=== PATIENT | male | born 1980 | race Two or more races ===

== ENCOUNTER 2021-09-07 11:42 | Emergency (ER) | payer MEDICAID ==
[~2021-09-07] VITALS: Ht 185.4 cm; Wt 79.4 kg
[2021-09-07 11:50] VITALS: BP 119/81
--- NOTE | 2021-09-07 11:53 | NUR ---
BIBS FOR C/O L EARACHE, FEVER, CHILLS, COUGH AND CONGESTION. RATES PAIN 5/10. OXYGEN SATURATION IN ROOM AIR IS AT 98%. WILL CONTINUE TO MONITOR THE PATIENT.
[2021-09-07] MEDS ORDERED: ONDANSETRON HCL/PF 4 MG/2 ML VIAL ONE ×2 (12:55→20:02)
[2021-09-07] MEDS ORDERED: ACETAMINOPHEN 325 MG TABLET ONE (12:55)
[2021-09-07] MEDS ORDERED: LORAZEPAM INJ 2 MG/ML VIAL ONE (12:56)
[2021-09-07] MEDS ORDERED: LORAZEPAM INJ 2 MG/ML VIAL IM ONE (13:00)
[2021-09-07] MEDS ORDERED: ACETAMINOPHEN 325 MG TABLET PO ONE (13:00)
[2021-09-07] MEDS ORDERED: ONDANSETRON HCL/PF 4 MG/2 ML VIAL IM ONE (13:00)
--- NOTE | 2021-09-07 13:12 | NUR ---
ORAL TEMP RECHECK, 98.1
[2021-09-07] MEDS ORDERED: AMOX-430 PO (13:44)
[2021-09-07] MEDS ORDERED: ONDA4TAB5 PO (13:44)
--- NOTE | 2021-09-07 13:45 | NUR ---
The patient is alert and oriented x4. Respiration regular and unlabored. Denies SOB. Will continue to monitor the patient.
--- NOTE | 2021-09-07 13:56 | NUR ---
Patient discharged to home in stable condition. Written and verbal after care instructions given. Patient verbalizes understanding of instruction.
[2021-09-07] MEDS ORDERED: DOXY100T2 PO (17:22)
[2021-09-13] MEDS ORDERED: CEFT2FRO2 IV (14:26)
[2021-09-13] MEDS ORDERED: TRAZ-252 PO (14:26)
[2021-09-13] MEDS ORDERED: NORT25CA PO (14:52)
[2021-09-13] MEDS ORDERED: LORA-259 PO (14:52)
== END 2021-09-07 13:56 | disposition home or self-care (01) ==
LOC: ER 11:44
DX: J32.9 Chronic sinusitis, unspecified (principal)
CPT/HCPCS: 70450; 96372 ×2; 99284; J2060; J2405 ×2; J7030

== ENCOUNTER 2021-09-07 14:48 | Inpatient (IN) | payer MEDICAID ==
[~2021-09-07] VITALS: Ht 185.4 cm; Wt 81.2 kg
[~2021-09-07 14:48] MED LIST: AMOX-430 PO; ONDA4TAB5 PO
--- NOTE | 2021-09-07 15:40 | NUR ---
[id number] C/O LEFT EAR PAIN. SEEN EARLIER FOR SAME REASON. RATES PAIN 09/01. ATTACHED TO THE MONITOR.
--- NOTE | 2021-09-07 15:50 | NUR ---
THE PATIENT IS ALERT AND ORIENTED X3. IN ROOM AIR AND DENIES SOB. RESPIRATION REGULAR AND UNLABORED. THE PATIENT REMAINS ATTACHED TO THE MONITOR.
[2021-09-07] MEDS ORDERED: ONDANSETRON HCL/PF 4 MG/2 ML VIAL ONE (15:52)
[2021-09-07] MEDS ORDERED: MORPHINE SULFATE INJ 4 MG/ML DISP.SYRIN ONE (15:52)
[2021-09-07 15:58] LABS: BASOPHILS % (AUTO) 0.1 % (0.0-2.0); EOSINOPHILS % (AUTO) 3.1 % (0.0-6.0); HEMATOCRIT 46 % (39-51); HEMOGLOBIN 15.3 g/dL (13.5-17.5); LYMPHOCYTES # (AUTO) 0.5 K/uL (0.8-4.8); LYMPHOCYTES % (AUTO) 4.6 % (20.0-44.0); MEAN CORPUSCULAR HGB CONC 34 g/dl (31.0-36.0); MEAN CORPUSCULAR VOLUME 90 fL (80-96); MONOCYTES # (AUTO) 0.3 K/uL (0.1-1.30); MONOCYTES % (AUTO) 2.9 % (2.0-12.0); NEUTROPHILS # (AUTO) 9.5 K/uL (1.8-8.9); NEUTROPHILS % (AUTO) 89.3 % (43.0-81.0); PLATELET COUNT (AUTO) 165 K/uL (150-450); WHITE BLOOD COUNT (AUTO) 10.7 K/uL (4.3-11.0)
--- NOTE | 2021-09-07 15:59 | NUR ---
BLOOD SPECIMEN COLLECTED AND SENT TO THE LAB
[2021-09-07] MEDS ORDERED: ONDANSETRON HCL/PF - ER 4 MG/2 ML VIAL IV ONE (16:00)
[2021-09-07] MEDS ORDERED: MORPHINE SULFATE INJ 2 MG/ML DISP.SYRIN IV ONE (16:00)
[2021-09-07] MEDS ORDERED: IV NS 0.9% 1,000 ML BAG IV ONE ×2 (16:00→18:00)
[2021-09-07] MEDS ORDERED: IV NS 0.9% 250 ML IV ONE (16:09)
[2021-09-07] MEDS ORDERED: IOHEXOL-350 100 ML VIAL IV ONE (16:09)
[2021-09-07] MEDS ORDERED: CT SWABBABLE VALVE TRANS SET 1 EA INFUS.SET MC ONE (16:10)
[2021-09-07 16:26] LABS: ALANINE AMINOTRANSFERASE 35 U/L (12-78); ALBUMIN 3.9 g/dL (3.4-5.0); ALKALINE PHOSPHATASE 86 U/L (46-116); ASPARTATE AMINOTRANSFERASE 25 U/L (15-37); BILIRUBIN,DIRECT 0.2 mg/dL (0.0-0.2); BILIRUBIN,TOTAL 0.8 mg/dL (0.2-1.0); CALCIUM, SERUM 9.3 mg/dL (8.5-10.1); CARBON DIOXIDE 20 mmol/L (21-32); CHLORIDE 100 mmol/L (98-107); CREATININE 1.5 mg/dL (0.6-1.3); GLUCOSE 140 mg/dL (74-106); POTASSIUM 3.4 mmol/L (3.5-5.1); SODIUM SERUM 137 mmol/L (136-145); TOTAL PROTEIN, SERUM 8.9 g/dL (6.4-8.2); UREA NITROGEN, BLOOD 17 mg/dL (7-18)
--- NOTE | 2021-09-07 16:42 | NUR ---
covid swab done and sent to the lab
--- NOTE | 2021-09-07 17:08 | NUR ---
NURSE NED TOOK OVER THE CARE. REPORT FOR ARASELI GIVEN
[2021-09-07] MEDS ORDERED: DOXY100T2 PO (17:22)
[2021-09-07] MEDS ORDERED: VANCOMYCIN 1 GM in IV D5W 250 ML IV ONE (17:30)
[2021-09-07] MEDS ORDERED: DEXAMETHASONE SOD PHOSPHATE 10 MG/ML VIAL IV ONE (17:30)
[2021-09-07] MEDS ORDERED: CEFTRIAXONE 2 G in IV D5W 50 ML IV ONE (17:30)
--- NOTE | 2021-09-07 17:38 | NUR ---
dr chapa at bedside for lumbar puncture.
[2021-09-07] MEDS ORDERED: DEXAMETHASONE SOD PHOSPHATE 10 MG/ML VIAL ONE (17:42)
[2021-09-07] MEDS ORDERED: ACETAMINOPHEN ES 500 MG TABLET PO ONE (18:00)
[2021-09-07 18:39] LABS: ALCOHOL, BLOOD < 10 mg/dL (0-0); CREATINE KINASE, TOTAL 184 U/L (39-308)
[2021-09-07 18:50] LABS: BILIRUBIN,URINE NEGATIVE (NEGATIVE); COLOR,URINE YELLOW (YELLOW); LEUKOCYTE ESTERASE ,URINE NEGATIVE (NEGATIVE); NITRITE, URINE NEGATIVE (NEGATIVE); PROTEIN,URINE TRACE mg/dl (NEGATIVE); UGLUCOSE NEGATIVE (NEGATIVE); UROBILINOGEN,URINE 0.2 EU/dL (0.2)
[2021-09-07 19:11] LABS: CSF PROTEIN 139.3 mg/dL (15-45)
[2021-09-07] MEDS ORDERED: ACETAMINOPHEN 650 MG/SUPP.RECT RC ONE ×2 (19:30→19:31)
--- NOTE | 2021-09-07 19:45 | NUR ---
MRSA SWAB COLLECTED AND SENT TO LAB. PATIENT'S BELONGINGS LIST DONE.
--- NOTE | 2021-09-07 19:54 | NUR ---
RT abg not performed. pt vomiting. notified lina villatoro, and dr dill. will try again later.
--- NOTE | 2021-09-07 20:02 | NUR ---
VERBAL ORDER 4MG ZOFRAN IVP
[2021-09-07 20:20] LABS: BACTERIA,URINE None seen /HPF (None Seen); RBC,URINE 0-2 /HPF (0-2); SQUAMOUS EPITHELIAL CELL,UR 0-2 /HPF (None Seen)
[2021-09-07] MEDS ORDERED: ONDANSETRON HCL/PF 4 MG/2 ML VIAL IV ONE (20:30)
--- NOTE | 2021-09-07 20:30 | NUR ---
RT AT BEDSIDE
--- NOTE | 2021-09-07 20:31 | NUR ---
VERBAL ORDER 1L NS. NOTED AND CARRIED OUT
[2021-09-07 20:56] LABS: ABG BASE EXCESS 0.4 mmol/L; ABG OXYGEN SATURATION 96.1 % (92.0-98.5); ABG PCO2 22.6 mmHg (35.0-45.0); ABG PH 7.577 (7.350-7.450); ABG PO2 78.1 mmHg (75.0-100.0); AaDO2 44.6 mmHg; COHb 0.3 % (0.5-1.5); MetHb 0.4 % (0.0-1.5); O2Hb 95.4 % (94.0-97.0); SITE, ABG Right Brachial; VENT MODE, BG room air
--- NOTE | 2021-09-07 21:20 | NUR ---
per lab lactic reflex 2.3
[2021-09-07] MEDS ORDERED: METRONIDAZOLE 500MG/ NS 100ML 500 MG in PREMIX 1 EA IV SCH (21:30)
[2021-09-07] MEDS ORDERED: ACETAMINOPHEN 325 MG TABLET PO PRN (21:30)
[2021-09-07] MEDS ORDERED: MAG HYDROX/AL HYDROX/SIMETH 30 ML UDC PO PRN (21:30)
[2021-09-07] MEDS ORDERED: IV D5/0.45 NACL 1,000 ML IV PRN (21:30)
[2021-09-07] MEDS ORDERED: Z GUARD REMEDY 2 OZ OINT TP PRN (21:30)
[2021-09-07] MEDS ORDERED: MAGNESIUM HYDROXIDE 30 ML UDC PO PRN (21:30)
[2021-09-07] MEDS ORDERED: CEFTRIAXONE 2 G in IV D5W 100 ML IV SCH (21:30)
[2021-09-07] MEDS ORDERED: MORPHINE SULFATE INJ 2 MG/ML DISP.SYRIN IV PRN (21:30)
--- NOTE | 2021-09-07 21:55 | NUR ---
ATTEMPTED TO GIVE REPORT, RN WILL CALL BACK
[2021-09-07] MEDS ORDERED: MEROPENEM 500 MG in IV NS 0.9% 50 ML IV SCH (22:00)
--- NOTE | 2021-09-07 22:00 | NUR ---
gave report to ramila, rn for pranav
[2021-09-07] MEDS ORDERED: MEROPENEM 500 MG VIAL IV ONE (22:19)
[2021-09-07] MEDS: MEROPENEM 500 MG in IV NS 0.9% 50 ML IV SCH (22:38)
[2021-09-07 23:00] VITALS: BP 139/72
[2021-09-07] MEDS ORDERED: IV NS 0.9% 1,000 ML IV ONE (23:30)
[2021-09-08] VITALS (26 sets, daily range): BP systolic 73–150; BP diastolic 34–107
[2021-09-08] MEDS: IV D5/0.45 NACL 1,000 ML IV PRN ×3 (00:31→22:47)
--- NOTE | 2021-09-08 03:25 | NUR ---
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 PT IS AWAKE, ALERT, ORIENTED. ARGENTINE SPEAKING. MOVES ALL EXTREMITIES, FOLLOWS COMMANDS. MARLENY. NO MOTOR OR SENSORY DEFICIT. O2 2L VIA N/C. TOLERATES WELL. VITAL SIGNS STABLE. SCOPE-SR. AFEBRILE. VOIDS SUFFICIENT AMT. OF CLEAR YELLOW URINE. IV SITE INTACT. MEDICATED ORDERED. ASSISTED WITH ADL. WILL CONTINUE CLOSE MONITORING.
[2021-09-08 04:56] LABS: HEMATOCRIT 38 % (39-51); HEMOGLOBIN 12.8 g/dL (13.5-17.5); LYMPHOCYTES # (AUTO) 0.6 K/uL (0.8-4.8); LYMPHOCYTES % (AUTO) 5.2 % (20.0-44.0); MEAN CORPUSCULAR HGB CONC 34 g/dl (31.0-36.0); MEAN CORPUSCULAR VOLUME 90 fL (80-96); MONOCYTES # (AUTO) 0.6 K/uL (0.1-1.30); MONOCYTES % (AUTO) 5.1 % (2.0-12.0); NEUTROPHILS # (AUTO) 10.9 K/uL (1.8-8.9); NEUTROPHILS % (AUTO) 89.7 % (43.0-81.0); PLATELET COUNT (AUTO) 133 K/uL (150-450); RED BLOOD CELL COUNT(AUTO) 4.22 MIL/uL (4.5-6.0); WHITE BLOOD COUNT (AUTO) 12.1 K/uL (4.3-11.0)
[2021-09-08 05:08] LABS: CALCIUM, SERUM 8.5 mg/dL (8.5-10.1); CREATININE 1.3 mg/dL (0.6-1.3); MAGNESIUM 2.2 mg/dL (1.8-2.4); PHOSPHORUS 2.5 mg/dL (2.5-4.9); POTASSIUM 3.9 mmol/L (3.5-5.1)
[2021-09-08] MEDS ORDERED: VANCOMYCIN 1 GM VIAL ONE (05:10)
[2021-09-08] MEDS ORDERED: MEROPENEM 500 MG VIAL IV ONE (05:13)
[2021-09-08] MEDS: MEROPENEM 500 MG in IV NS 0.9% 50 ML IV SCH (05:21)
[2021-09-08 05:24] LABS: THYROID STIMULATING HORMONE 0.213 uIU/mL (0.358-3.74)
[2021-09-08] MEDS ORDERED: VANCOMYCIN 1 GM in IV D5W 250 ML IV ONE (06:00)
[2021-09-08] MEDS: ONDANSETRON HCL/PF 4 MG/2 ML VIAL IVP PRN ×2 (07:58→19:07)
--- NOTE | 2021-09-08 08:00 | NUR ---
RN NOTES Patient T-102.2F [id number] Tylenol 650mh po prn, Zofran 4 mg/ml for nausea, Morphine sulfate1 mg/ml iv push for generalized pain 07/02. and cooling measure. patient room make dark. infusing d51/2 ns at 125 ml/hr for dehydration. get order from hospitalist clear liquid diet. call light within to reach. will follow up .
[2021-09-08] MEDS: PANTOPRAZOLE 40 MG VIAL IV SCH (08:03)
[2021-09-08] MEDS: DEXAMETHASONE SOD PHOSPHATE 4 MG/ML VIAL IV SCH ×2 (08:03→18:17)
--- NOTE | 2021-09-08 09:00 | NUR ---
rn notes Rechecked T-99. 2 F. patient tolerated breakfast 10%, reliefs nausea.
[2021-09-08] MEDS ORDERED: FLUCONAZOLE (100 MG) 100 MG TABLET PO SCH (09:30)
--- NOTE | 2021-09-08 10:20 | NUR ---
rn notes Family next to the bed , asking speak to the hospitalist, Dr Vargas notified.
[2021-09-08] MEDS ORDERED: MEROPENEM 1 G in IV NS 0.9% 100 ML IV SCH (12:00)
--- NOTE | 2021-09-08 12:20 | NUR ---
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
[2021-09-08] MEDS: VANCOMYCIN 1 GM in IV D5W 250ml IV SCH ×2 (13:55→20:50)
[2021-09-08] MEDS ORDERED: GADOTERATE MEGLUMINE 10 MMOL/20 ML VIAL IV ONE (14:16)
[2021-09-08] MEDS: HYDROMORPHONE 1 MG/1 ML DISP.SYRIN IV PRN ×3 (14:19→22:49)
--- NOTE | 2021-09-08 14:19 | NUR ---
rn notes administered Dilaudid 1 mg/ml iv push for headache 07/02 per patient request. bp 102/67, p-73, r-40.
[2021-09-08] MEDS: CEFTRIAXONE 2 G in IV D5W 100 ML IV SCH (15:08)
--- NOTE | 2021-09-08 19:07 | NUR ---
rn notes administered Dilaudid 1 mg/ml iv push for generalized pain 8/10, and Zofran 4 mg/ml iv push for nausea per patient request. patient refused to eat dinner. assist urinating. call light within to reach. endorsed oncoming nurse follow plan of care.
--- NOTE | 2021-09-08 19:30 | NUR ---
RN NOTE RECEIVED PT AWAKE, ALERT AND ORIENTED X4. PT IN PAIN AND NAUSEOUS, MEDS WERE JUST GIVEN. PT ON O2 AT 2L. DENIES ANY SOB. NO DISTRESS NOTED. PT ON D51/2 NS AT 125ML/HR, INFUSING WELL. ON CLEAR LIQUIDS, PT VERBALIZES UNDERSTANDING REGARDING DIET. WILL CONTINUE TO MONITOR. ALL SAFETY MEASURES IN PLACE PER PROTOCOL.
--- NOTE | 2021-09-08 21:15 | NUR ---
RN NOTE PT TEMP ORALLY 98.8 AT 1999. RECHECKED AT THIS TIME VIA RECTAL NOTED WITH 103.6. PT ALERT, NO CHANGES IN LOC NOTED. BUTCHER MEAT RESTRICTIVE PREPARATION OPERATOR JEFFERY AND ID RESTRICTIVE PREPARATION OPERATOR JOLENE NOTIFIED REGARDING TEMP AND POSITIVE BLOOD CULTURE RESULT. OBTAINED AN ORDER FROM ONCNEVIN MARSH FOR TYLENOL SUPP PER PT REQUEST, NEW ORDER NOTED AND CARRIED OUT.
[2021-09-08] MEDS: ACETAMINOPHEN 650 MG/SUPP.RECT RC PRN (21:22)
--- NOTE | 2021-09-08 23:45 | NUR ---
RN NOTE PT COMPLAINED OF DISCOMFORT ON LAC IV SITE. NO SIGNS OF INFILTRATION NOTED. REQUESTED FOR NEW LINE AND TO REMOVE LHAND IV LINE WELL. NEW IV INSERTED ON RFA 20G.WITH GOOD BLOOD RETURN, FLUSHES WELL. CONTINUE ON IV FLUIDS. WILL CONTINUE TO MONITOR.
[2021-09-09] VITALS (21 sets, daily range): BP systolic 88–128; BP diastolic 51–78
--- NOTE | 2021-09-09 01:00 | NUR ---
RN NOTE PT SLEEPING, AROUSES EASILY. PER PT PAIN IS BETTER. DENIES ANY NAUSEA. WILL CONTINUE TO MONITOR.
[2021-09-09] MEDS: CEFTRIAXONE 2 G in IV D5W 100 ML IV SCH ×2 (02:27→15:33)
[2021-09-09] MEDS: HYDROMORPHONE 1 MG/1 ML DISP.SYRIN IV PRN ×3 (03:49→20:55)
--- NOTE | 2021-09-09 03:50 | NUR ---
RN NOTE PT REMOVING O2 CANNULA, DENIES ANY SOB. NO SIGNS OF DISTRESS NOTED. SATING 96-100% ON ROOM AIR. WILL MONITOR OFF OXYGEN.
[2021-09-09] MEDS: VANCOMYCIN 1 GM in IV D5W 250ml IV SCH ×3 (05:36→20:52)
--- NOTE | 2021-09-09 06:58 | NUR ---
RN NOTE PATIENT TOLERATING ROOM AIR. DENIES ANY SOB. NO DISTRESS NOTED. DENIES ANY PAIN AT THIS TIME. BODY TEMP DECREASED TO 99.7 AFTER COOLING MEASURES WERE APPLIED AND TYLENOL. DENIES ANY NAUSEA AT THIS TIME. CONTINUE ON IVFLUIDS. REMAIN ON CLEAR LIQUIDS. ALL SAFETY MEASURES MAINTAINED. ENDORSED TO NEXT SHIFT NURSE FOR ARASELI.
[2021-09-09] MEDS: ACETAMINOPHEN 650 MG/SUPP.RECT RC PRN ×2 (07:55→20:54)
--- NOTE | 2021-09-09 07:56 | NUR ---
RN NOTES ADMINISTERED TYLENOL [id number] FOR T102F RECTALLY , AND DILAUDID 1 MG/DL IV PUSH FOR PAIN GENERALIZED 8/10 PER PATIENT REQUEST. APPLIED COOLING MEASURE WELL. PATIENT HAS NO ACUTE RES[PIRATORY DISTRESS, VSS. CALL LIGHT WITHIN TO REACH. WILL FOLLOW UP.
[2021-09-09] MEDS: DEXAMETHASONE SOD PHOSPHATE 4 MG/ML VIAL IV SCH ×2 (08:20→17:27)
[2021-09-09] MEDS: PANTOPRAZOLE 40 MG VIAL IV SCH (08:20)
[2021-09-09] MEDS: IV D5/0.45 NACL 1,000 ML IV PRN ×2 (09:08→20:54)
[2021-09-09 09:42] LABS: BASOPHILS % (AUTO) 0.1 % (0.0-2.0); HEMATOCRIT 36 % (39-51); HEMOGLOBIN 11.9 g/dL (13.5-17.5); LYMPHOCYTES # (AUTO) 1.1 K/uL (0.8-4.8); LYMPHOCYTES % (AUTO) 7.5 % (20.0-44.0); MEAN CORPUSCULAR HGB CONC 33 g/dl (31.0-36.0); MEAN CORPUSCULAR VOLUME 91 fL (80-96); MONOCYTES # (AUTO) 0.9 K/uL (0.1-1.30); MONOCYTES % (AUTO) 5.9 % (2.0-12.0); NEUTROPHILS % (AUTO) 86.5 % (43.0-81.0); PLATELET COUNT (AUTO) 164 K/uL (150-450); RED BLOOD CELL COUNT(AUTO) 3.93 MIL/uL (4.5-6.0)
[2021-09-09 09:51] LABS: ALBUMIN 2.7 g/dL (3.4-5.0); BILIRUBIN,TOTAL 0.7 mg/dL (0.2-1.0); CALCIUM, SERUM 8.5 mg/dL (8.5-10.1); CREATININE 1.1 mg/dL (0.6-1.3); POTASSIUM 3.7 mmol/L (3.5-5.1)
[2021-09-09] MEDS: LORAZEPAM INJ 2 MG/ML VIAL IV PRN (10:02)
--- NOTE | 2021-09-09 10:09 | NUR ---
rn notes ADMINISTERED ATIVAN 1 MG/ML IV PUSH FOR ANXIETY, AND PAIN , PER HOSPITALIST ORDER . PATIENT HAS DELIRIUM, AT THIS TIME, HOSPITALIST NEXT TO THE BED. BP-115/65, P-64. WILL FOLLOW UP.
--- NOTE | 2021-09-09 13:00 | NUR ---
RN NOTES PATIENT TOLERATED HOME LUNCH 25% WITH ASSIST OF SISTER. MEDICATION WERE ADMINISTERED FOR ANXIETY EFFECTIVE . PATIENT STATE "I NEED MORE REST AT THIS TIME, USING URINAL".
--- NOTE | 2021-09-09 17:55 | NUR ---
RN NOTES TRANSFERRED PATIENT TO THE [facility] AT THIS TIME WITH STABLE CONDITION WITH MEDICATION. . NO ACUTE RESPIRATORY DISTRESS, VSS, PATIENT A/OX3, REFUSED PAIN AT THIS TIME. INFUSING D51/2 NS @ 125ML/HR ON RIGHT FA INTACT. BEDSIDE REPORT GIVEN RN FOLLOW PLAN OF CARE. SISTER BEDSIDE.
--- NOTE | 2021-09-09 18:00 | NUR ---
RN NOTE Received report from Ketan for continuation of care.
--- NOTE | 2021-09-09 19:35 | NUR ---
RN CLOSING NOTE Patient is awake, alert and oriented x 4 with periods of forgetfulness and disorienttaion. On room air, no respiratory distress, no SOB. Sinus rhythm. RFA IV running D5 1/2 NS @125cc/hr with no ssx of infiltration. Safety pecautions implemented, bed locked in lowest position, call light within reach.
--- NOTE | 2021-09-09 21:00 | NUR ---
RN NOTE PT IN BED, ALERT AND ORIENTED X 4. WITH EPISODE OF FORGETFULNESS, PT COMPLAINED OF PAIN ON NECK AND HEAD AREA. NO DISTRESS NOTED. ON ROOM AIR. NOTED WITH FEVER, 101.7 RECTALLY. TYLENOL SUPP GIVEN AND APPLIED COOLING MEASURES. PT ON D5 1/2 NS RUNNING AT 125ML/HR. IV INTACT AND PATENT. SR ON TELE MONITOR WITH HR OF 65. ALL SAFETY IN PLACE. CALL LIGHT WITHIN REACH. WILL CONTINUE TO MONITOR.
[2021-09-10] VITALS: BP 114/73
[2021-09-10] MEDS: DEXAMETHASONE SOD PHOSPHATE 4 MG/ML VIAL IV SCH ×3 (00:32→16:01)
[2021-09-10] MEDS: CEFTRIAXONE 2 G in IV D5W 100 ML IV SCH ×2 (02:39→14:19)
[2021-09-10 04:00] VITALS: BP 121/75
[2021-09-10] MEDS: VANCOMYCIN 1 GM in IV D5W 250ml IV SCH (05:09)
[2021-09-10] MEDS: IV D5/0.45 NACL 1,000 ML IV PRN ×2 (05:09→14:15)
[2021-09-10] MEDS: HYDROMORPHONE 1 MG/1 ML DISP.SYRIN IV PRN (06:23)
--- NOTE | 2021-09-10 06:43 | NUR ---
RN NOTE PT IN BED SLEEPING, AROUSES EASILY. NOT IN ANY DISTRESS. TOLERATING ROOM AIR. COMPLAINED OF HEAD AND NECK PAIN, DILAUDID GIVEN ORDERED. CONTINUE ON IVFLUIDS D51/2NS, INFUSING WELL. LATEST TEMP AT 98.2. REMAIN ON CLEAR LIQUIDS. KEPT IN QUIET ENVIRONMENT, ALL NEEDS WERE ATTENDED. WILL ENDORSE TO NEXT SHIFT NURSE FOR ARASELI.
[2021-09-10 07:01] LABS: BASOPHILS % (AUTO) 0.1 % (0.0-2.0); HEMATOCRIT 40 % (39-51); HEMOGLOBIN 13.1 g/dL (13.5-17.5); LYMPHOCYTES # (AUTO) 0.9 K/uL (0.8-4.8); LYMPHOCYTES % (AUTO) 7.4 % (20.0-44.0); MEAN CORPUSCULAR HGB CONC 33 g/dl (31.0-36.0); MEAN CORPUSCULAR VOLUME 92 fL (80-96); MONOCYTES # (AUTO) 0.5 K/uL (0.1-1.30); MONOCYTES % (AUTO) 3.6 % (2.0-12.0); NEUTROPHILS # (AUTO) 11.2 K/uL (1.8-8.9); NEUTROPHILS % (AUTO) 88.9 % (43.0-81.0); PLATELET COUNT (AUTO) 189 K/uL (150-450); RED BLOOD CELL COUNT(AUTO) 4.33 MIL/uL (4.5-6.0); WHITE BLOOD COUNT (AUTO) 12.6 K/uL (4.3-11.0)
--- NOTE | 2021-09-10 07:26 | NUR ---
matt rn note received patient in bed ,alert oriented x3, on ra no sob noted at this time, on tele monitor sb hr 59 at this time, rt fa hl intact and flushed well, on ivf as ordered ,bed in lowest and locked positing, call light within reach , plan of care disused with patient , will monitor patient
[2021-09-10 08:00] VITALS: BP 111/56
[2021-09-10] MEDS: ACETAMINOPHEN 650 MG/SUPP.RECT RC PRN ×2 (08:10→20:49)
[2021-09-10 08:47] LABS: ALBUMIN 2.6 g/dL (3.4-5.0); BILIRUBIN,TOTAL 0.6 mg/dL (0.2-1.0); CALCIUM, SERUM 8.4 mg/dL (8.5-10.1); CREATININE 0.9 mg/dL (0.6-1.3); POTASSIUM 3.7 mmol/L (3.5-5.1); TOTAL PROTEIN, SERUM 7.1 g/dL (6.4-8.2)
--- NOTE | 2021-09-10 08:51 | NUR ---
MS RN NOTE DR IBARRA NEUROLOGIST AT BEDSIDE UPDATED PATIENT CONDITION
[2021-09-10 09:07] LABS: *CRYPTOCOCCUS AG, CSF Negative (Negative)
--- NOTE | 2021-09-10 09:41 | NUR ---
MS RN NOTE UNABLE TO CHECK ROMEO BOTH EYES ,PATIENT VERY SECRETIVE TO LIGHT, WILL INFORM TO MD
--- NOTE | 2021-09-10 13:00 | NUR ---
ms rn note DR Flip Banks at bedside update patient condition, aware that unable to check MARLENY both eyes eyes very sensitive
[2021-09-10 16:00] VITALS: BP 118/72
--- NOTE | 2021-09-10 16:22 | NUR ---
MS RN NOTE ROUNDS MADE FAMILY AT BEDSIDE ALL NEEDS ATTENDED, FAMILY AT BED SIDE, CONTINUE IN IV FLUID, PT NOT IN DISTRESS
--- NOTE | 2021-09-10 18:36 | NUR ---
MED SURGE RN NOTES PT IS IN BED ALERT AND ORIENTED, INDEPENDENT WITH FEEDING. NOT SIGN OF SOB AT THIS TIME. ON IV FLUIDS. SAFETY MEASUREMENTS IMPLEMENTED BED LOCKED AT ITS LOWEST POSITION AND CALL LIGHT WITHIN REACH. RN WILL CONTINUE TO MONITOR.
--- NOTE | 2021-09-10 19:30 | NUR ---
RN OPENING NOTES: RECEIVED PT A/OX4 IN BED RESTING COMFORTABLY. PATIENT IN NO S/SX OF ACUTE DISTRESS AT THIS TIME. NO SOB NOTED. PATIENT'S BREATHING IS EVEN AND UNLABORED. PATIENT IS ON ROOM AIR; TOLERATING WELL. PT ON MS STATUS. PATIENT ON CLEAR LIQUID DIET; TOLERATES WELL. NOTED IV SITE ON R FA #20 ; PATENT, INTACT AND FLUSHING WELL; NO S/S OF INFECTION OR INFILTRATION. WITH IV FLUID RUNNING ORDERED. WITH DVT PUMP ON. SAFETY MEASURES HAVE BEEN PROVIDED AND IMPLEMENTED. PATIENT BED ALARM IS ON. HEAD OF BED ELEVATED. BED IS LOCKED, IN LOWEST POSITION AND SIDE RAILS UP. CALL LIGHT WITHIN REACH OF THE PATIENT. APPLICABLE ISOLATION PRECAUTIONS IN PLACE. WILL CONTINUE TO MONITOR AND REASSESS FOR ANY CHANGES AND WILL CARRY OUT ANY ONGOING AND ACTIVE MD ORDER.
[2021-09-10 20:00] VITALS: BP 111/64
--- NOTE | 2021-09-10 20:45 | NUR ---
RN NOTES NOTED PT'S TEMP IS AT 100.1@1999; PRN MEDICATION GIVEN AND COOLING MEASURES RENDERED. CHILD CARE DIRECTOR MADE AWARE. WILL CONTINUE TO MONITOR AND ASSESS THROUGHOUT THE SHIFT. Addendum: 09/10/21 at 2256 by STEPHY MALONE RN @220- PT'S TEMP IS AT 99.1; WILL CONTINUE TO PROVIDE COOLING MEASURES AND CONTINUE TO MONITOR
[2021-09-10] MEDS: NORTRIPTYLINE HCL 10 MG CAPSULE PO SCH ×2 (22:00→22:19)
--- NOTE | 2021-09-11 | NUR ---
RN NOTES PATIENT REMAINED TO BE IN NO SIGNS OF ACUTE RESPIRATORY DISTRESS ,WILL CONTINUE TO MONITOR AND REASSESS FOR ANY CHANGES THROUGHOUT THE SHIFT.
[2021-09-11] MEDS: CEFTRIAXONE 2 G in IV D5W 100 ML IV SCH ×2 (02:41→16:52)
[2021-09-11 04:00] VITALS: BP 101/62
--- NOTE | 2021-09-11 04:00 | NUR ---
RN NOTES NO NOTED CHANGES IN PATIENT CONDITION AT THIS TIME; PATIENT VITALS STABLE, NO SIGNS OF ACUTE RESPIRATORY DISTRESS. AM PATIENT CARE RENDERED.WILL CONTINUE TO MONITOR AND REASSESS FOR ANY CHANGES THROUGHOUT THE SHIFT.
--- NOTE | 2021-09-11 06:40 | NUR ---
RN CLOSING NOTE: PATIENT REMAINS IN ROOM IN NO SIGNS OF RESPIRATORY DISTRESS, PATIENT STILL ON ROOM AIR;TOLERATING WELL SATURATING @ >95% SP02. SAFETY MEASURES IMPLEMENTED, BED IN LOWEST POSITION, LOCKED, SIDE RAILS UP, CALL LIGHT WITHIN REACH.ALL NEEDS AND ORDERS ADDRESSED DURING THE SHIFT. IV ACCESS MAINTAINED INTACT, SECURED AND FLUSHING WELL. ALL DUE MEDS GIVEN ORDERED & SCHEDULED ; PATIENT TOLERATED WELL. PATIENT KEPT CLEAN AND COMFORTABLE WITHIN THE SHIFT. PATIENT ENDORSED TO INCOMING SHIFT RN WITH STABLE VITAL SIGN AND FOR CONTINUITY OF CARE.
[2021-09-11 06:52] LABS: BASOPHILS % (AUTO) 0.1 % (0.0-2.0); HEMATOCRIT 42 % (39-51); LYMPHOCYTES % (AUTO) 9.8 % (20.0-44.0); MEAN CORPUSCULAR HGB CONC 34 g/dl (31.0-36.0); MEAN CORPUSCULAR VOLUME 91 fL (80-96); MONOCYTES # (AUTO) 0.5 K/uL (0.1-1.30); MONOCYTES % (AUTO) 5.4 % (2.0-12.0); NEUTROPHILS # (AUTO) 8.4 K/uL (1.8-8.9); NEUTROPHILS % (AUTO) 84.7 % (43.0-81.0); PLATELET COUNT (AUTO) 262 K/uL (150-450); RED BLOOD CELL COUNT(AUTO) 4.59 MIL/uL (4.5-6.0); WHITE BLOOD COUNT (AUTO) 9.9 K/uL (4.3-11.0)
[2021-09-11] MEDS: IV D5/0.45 NACL 1,000 ML IV PRN ×3 (07:01→19:47)
--- NOTE | 2021-09-11 08:00 | NUR ---
RECEIVED PATIENT ASLEEP, EASY TO AROUSE AND MADE NEEDS KNOW, GIVE AM PO MEDS AND ORDERS CARRIED OUT NO ASPIRATION NOTED, NO SOB, NO SIGNS OF RESPIRATORY DISTRESS, PATIENT ON ROOM AIR;TOLERATING WELL SATURATING @ >98% SP02. BED IN LOW POSITION, WHEELS LOCKED AND SAFETY MEASURES IMPLEMENTED, SIDE RAILS UP, IV ACCESS MAINTAINED INTACT, SECURED PATENT FLUSHING WELL. PATIENT KEPT CLEAN AND COMFORTABLE HELPED TO REPOSITION REQUESTED, ABLE TO TURN SELF, NO ASPIRATIONS NOTED, CONTINUE TO MONITOR FOR ANY CHANGES. CALL LIGHT IN REACH, PATIENT SLEEPING AT THIS TIME.
[2021-09-11 08:29] LABS: ALBUMIN 2.7 g/dL (3.4-5.0); BILIRUBIN,TOTAL 0.6 mg/dL (0.2-1.0); CALCIUM, SERUM 8.8 mg/dL (8.5-10.1); CREATININE 0.9 mg/dL (0.6-1.3)
[2021-09-11] MEDS: DEXAMETHASONE SOD PHOSPHATE 4 MG/ML VIAL IV SCH ×3 (08:58→16:52)
[2021-09-11] MEDS ORDERED: PANTOPRAZOLE 40 MG/PACK PACK PO SCH (09:00)
[2021-09-11 09:31] LABS: TOTAL PROTEIN, SERUM 7.6 g/dL (6.4-8.2)
[2021-09-11 09:53] VITALS: BP 101/67
[2021-09-11 13:10] VITALS: BP 110/68
[2021-09-11 16:15] VITALS: BP 110/68
--- NOTE | 2021-09-11 18:30 | NUR ---
PATIENT HAS NO S/S OF ANY SOB, NO LABORED BREATHING NOTED, ABLE TO REPOSITION SELF AND MAKE NEEDS KNOWN, IV SITE ON R FA GAUGE #20 ; PATENT, INTACT, FLUSHING WELL; NO S/S OF INFECTION OR INFILTRATION NOTED, NO ADVERSE SIDE EFFECTS NOTED TO ABT AND MEDICATIONS DURING SHIFT, NO C/O PAIN , CALL LIGHT IN REACH, WHEELS LOCKED, BED IN LOWEST POSITION, ALL MD ORDERS CARRIED OUT AND WILL CONTINUE TO MONITOR FOR ANY SIGNIFICANT CHANGES, NONE NOTED DURING AM SHIFT.
[2021-09-11] MEDS ORDERED: LORAZEPAM INJ 2 MG/ML VIAL IV PRN (19:00)
[2021-09-11] MEDS ORDERED: TRAZODONE 50 MG TABLET PO PRN (19:30)
--- NOTE | 2021-09-11 19:35 | NUR ---
RN NOTE PT RECEIVED IN BED. SISTER AT BEDSIDE. PT IS ON ROOM AIR SHOWING NO S/S OF RESP DISTRESS/SOB. PT IS A/OX4. SKIN INTACT. ON CLEAR LIQUID DIET. IV ACCESS NOTED ON RIGHT FOREARM. D5 1/2 NS RUNNING AT 125 ML/HR. IV FLUSHED, PATENT, AND INTACT WITH NO SIGNS OF INFILTRATION. ALL SAFETY MEASURES IMPLEMENTED. CALL LIGHT WITHIN REACH. BED ALARM ON. BED LOCKED AND IN LOWEST POSITION. WILL CONTINUE TO MONITOR AND ASSESS FOR ANY ACUTE CHANGES.
[2021-09-11 20:00] VITALS: BP 94/59
[2021-09-11] MEDS: LORAZEPAM INJ 2 MG/ML VIAL IV PRN (21:26)
[2021-09-12] MEDS: DEXAMETHASONE SOD PHOSPHATE 4 MG/ML VIAL IV SCH ×3 (00:43→17:03)
[2021-09-12] MEDS ORDERED: CEFTRIAXONE 1 G VIAL ONE ×2 (03:05)
[2021-09-12] MEDS: CEFTRIAXONE 2 G in IV D5W 100 ML IV SCH ×2 (03:11→14:43)
[2021-09-12] MEDS: IV D5/0.45 NACL 1,000 ML IV PRN ×2 (03:50→17:15)
[2021-09-12 04:00] VITALS: BP 105/66
[2021-09-12] MEDS: LORAZEPAM INJ 2 MG/ML VIAL IV PRN (04:02)
[2021-09-12 06:30] LABS: BASOPHILS % (AUTO) 0.1 % (0.0-2.0); HEMATOCRIT 42 % (39-51); HEMOGLOBIN 14.1 g/dL (13.5-17.5); LYMPHOCYTES # (AUTO) 0.8 K/uL (0.8-4.8); LYMPHOCYTES % (AUTO) 9.4 % (20.0-44.0); MEAN CORPUSCULAR HGB CONC 33 g/dl (31.0-36.0); MEAN CORPUSCULAR VOLUME 91 fL (80-96); MONOCYTES # (AUTO) 0.5 K/uL (0.1-1.30); MONOCYTES % (AUTO) 6.1 % (2.0-12.0); NEUTROPHILS # (AUTO) 7.3 K/uL (1.8-8.9); NEUTROPHILS % (AUTO) 84.4 % (43.0-81.0); PLATELET COUNT (AUTO) 280 K/uL (150-450); RED BLOOD CELL COUNT(AUTO) 4.66 MIL/uL (4.5-6.0); WHITE BLOOD COUNT (AUTO) 8.7 K/uL (4.3-11.0)
--- NOTE | 2021-09-12 06:45 | NUR ---
RN NOTES NO CHANGES IN PT CONDITION DURING SHIFT. PT IS ON ROOM AIR SHOWING NO S/S OF RESP DISTRESS. BREATHING EVEN AND UNLABORED. PATIENT DENIES ANY PAIN, N/V. IV LINE ON RIGHT FOREARM RUNNING D51/2 NS AT 75 ML/HR. LINES PATENT AND INTACT. ALL DUE MEDS GIVEN ORDERED. PT KEPT CLEAN AND COMFORTABLE. ALL SAFETY MEASURES IMPLEMENTED. CALL LIGHT WITHIN REACH. BED ALARM ON. BED LOCKED AND IN LOWEST POSITION. WILL ENDORSE TO MORNING SHIFT RN FOR ARASELI.
[2021-09-12 07:44] LABS: ALBUMIN 2.5 g/dL (3.4-5.0); BILIRUBIN,TOTAL 0.4 mg/dL (0.2-1.0); CALCIUM, SERUM 8.2 mg/dL (8.5-10.1); CREATININE 0.8 mg/dL (0.6-1.3)
[2021-09-12] MEDS: PANTOPRAZOLE 40 MG TABLET.DR PO SCH (09:29)
[2021-09-12 12:00] VITALS: BP_SYST 139; BP_SYST 98; BP_DIAS 59; BP_DIAS 72
--- NOTE | 2021-09-12 17:49 | NUR ---
PT SISTER ARIAS WANTS TO SPEAK TO ALFREDO TO SET A COMPLAINT HER PHONE NUMBER [phone]
--- NOTE | 2021-09-12 19:10 | NUR ---
RN NOTE RECEIVED PATIENT IN BED RESTING ALERT ORIENTED X3 VERBALLY RESPONSIVE ON ROOM AIR O2:97% IV SITE IS ON RIGHT FOREARM INTACT PATENT ON IV HYDRATION D51/2NS 75CC/HR,CONTINET TO BOWEL/BLADDER SAFETY MEASURE IMPLEMENT CALL LIGHT WITHIN REACH CONTINUE TO MONITOR.
[2021-09-12 20:00] VITALS: BP 103/59
[2021-09-12] MEDS: NORTRIPTYLINE HCL 10 MG CAPSULE PO SCH (21:52)
[2021-09-13] MEDS: CEFTRIAXONE 2 G in IV D5W 100 ML IV SCH ×2 (02:21→14:06)
[2021-09-13 04:00] VITALS: BP 117/71
[2021-09-13] MEDS: LORAZEPAM INJ 2 MG/ML VIAL IV PRN (04:20)
--- NOTE | 2021-09-13 06:38 | NUR ---
RN NOTE PATIENT REMAINS ON ALERT ORIENTED X3 VERBALLY RESPONSIVE ON ROOM AIR O2:98% NO SOB NOT ACUTE DISTRESS NOTED,ON IV HYDRATION D51/2NS 75CC/HR IV SITE IS ON RIGHT FOREARM INTACT PATENT ALL DUE MEDS GIVEN MD ORDERED ENDORSE NEXT COMING SHIFT FOR CONTINUATION OF CARE.
[2021-09-13] MEDS: IV D5/0.45 NACL 1,000 ML IV PRN (06:55)
--- NOTE | 2021-09-13 07:24 | NUR ---
MS RN OPENING NOTE RECEIVED PATIENT IN BED, RESTING. EASY TO AROUSE. A/O X4. STABLE ON ROOM AIR. NO SOB NOTED. NO DISTRESS/DISCOMFORT NOTED. IV ACCESS TO RIGHT FOREARM #20 - RUNNING D5 1/2NS @ 75ML/HR. SAFETY MEASURES IN PLACE. CALL LIGHT WITHIN REACH. WILL CONTINUE TO MONITOR.
[2021-09-13 07:55] VITALS: BP 98/56
[2021-09-13 08:07] LABS: *HSV 2 DNA PCR Negative (Negative)
[2021-09-13] MEDS: PANTOPRAZOLE 40 MG TABLET.DR PO SCH (08:10)
[2021-09-13] MEDS: DEXAMETHASONE 4 MG TABLET PO SCH ×2 (08:10→16:24)
[2021-09-13 12:02] VITALS: BP 104/60
[2021-09-13] MEDS ORDERED: TRAZ-252 PO (14:26)
[2021-09-13] MEDS ORDERED: CEFT2FRO2 IV (14:26)
--- NOTE | 2021-09-13 14:27 | NUR ---
MS RN NOTE DR. VANG ORDERED TO CHANGE NORTRIPTYLINE FROM ONE TAB TO TWO TABS BEFORE BEDTIME. ORDER NOTED, READ BACK AND CARRIED OUT. ORDER WAS CHANGED FROM 10MG TO 20MG.
[2021-09-13] MEDS ORDERED: LORA-259 PO (14:52)
[2021-09-13] MEDS ORDERED: NORT25CA PO (14:52)
--- NOTE | 2021-09-13 17:32 | NUR ---
MS CONTINUOUS IMPROVEMENT MANAGER NOTE PATIENT DISCHARGED HOME VIA PRIVATE CAR @ [id number]. STABLE, A/O X4. PATIENT IS AMBULATORY AND ABLE TO MAKE NEEDS KNOWN. ALL DISCHARGE PAPERWORK AND EXITCARE REVIEWED WITH PATIENT'S SISTER AT BEDSIDE. DR. JULES ALSO SPOKE WITH SISTER REGARDING DISCHARGE INSTRUCTIONS. MIDLINE IS PLACED - PATIENT WILL BE DISCHARGING WITH IT TO CONTINUE IV ANTIBIOTICS. PERIPHERAL IV WAS REMOVED. WRISTBAND REMOVED. PATIENT ACCOMPANIED TO [facility] BY RAMO PHILLIPS VIA WHEELCHAIR. MD AND CHARGE NURSE AWARE OF DISCHARGE.
[2021-09-13] MEDS ORDERED: NORTRIPTYLINE HCL 10 MG CAPSULE PO SCH (22:00)
== END 2021-09-13 17:30 | disposition home health service (06) | DRG 720 ==
LOC: ER 14:50 → ICU 21:42 → TELE-TD 09-09 17:56 → MEDSG1 09-10 08:39
PROVIDERS: ADMIT Registered Nurse; ATTEND Nurse Practitioner Acute Care
PROC: 009U3ZX Drainage of Spinal Canal, Percutaneous Approach, Diagnostic (ICD-10-PCS; principal; 2021-09-07)
PROC: 05H633Z Insertion of Infusion Device into Left Subclavian Vein, Percutaneous Approach (ICD-10-PCS; 2021-09-13)
PROC: B547ZZA Ultrasonography of Left Subclavian Vein, Guidance (ICD-10-PCS; 2021-09-13)
DX: A40.3 Sepsis due to Streptococcus pneumoniae (principal); N17.0 Acute kidney failure with tubular necrosis; G00.1 Pneumococcal meningitis; E87.2 Acidosis; G92.9 Unspecified toxic encephalopathy; D64.9 Anemia, unspecified; E87.6 Hypokalemia; Z20.822 Contact with and (suspected) exposure to COVID-19; H66.90 Otitis media, unspecified, unspecified ear; Z86.61 Personal history of infections of the central nervous system; B95.4 Other streptococcus as the cause of diseases classified elsewhere; R51.9 Headache, unspecified; J32.3 Chronic sphenoidal sinusitis
CPT/HCPCS: 36415; 36600; 70496-TC; 70553-TC; 71045-TC; 80048-TC; 80053-TC; 80061-TC; 80076-TC; 80202-TC; 81001; 82550-TC; 82945-TC; 83605-TC; 83735-TC; 84100-TC; 84155-TC; 84443-TC; 84484-TC; 85025-TC; 85730-TC; 87040-TC; 87070-TC; 87081-TC; 87086-TC; 87186-TC; 87806; 87899; 89051-TC; A6403; A9575; C9113; C9803; G0378; G0480; J0696; J1100; J1170; J2060; J2185; J2270; J2405; J3370; J3490; J7030; J7040; J7042; J7050; J7060; J8540; Q9967